=== PATIENT | female | born 2000 | race Caucasian/White ===

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

== ENCOUNTER 2020-01-29 09:44 | Emergency (ER) | payer OTHER, SELFPAY ==
[2020-01-29 09:44] VITALS: BP 120/70; PULSE 83; RESP 16; TEMP 36.8; O2SAT 98; BMI 31.2
--- NOTE | 2020-01-29 10:01 | HMH.EDUTC ---
[facility] [place]: Exposure to COVID-19 virus Disposition: Home, Self-Care Condition on Discharge: Good Instructions: Sore Throat, Preventing the Spread of Coronavirus Discharge Instructions Additional Instructions: *Monitor Temp, Over the counter Motrin or Tylenol as directed/as needed Tylenol every 4 hours and Motrin every 6 hours (as long as your family doctor has told you that you can take it) for fever or pain. and straight to ER if unable to lower temp less than 101.0 after medication given *Warm salt water gargles may help to soothe the throat *Throat Lozenges *Warm fluids like tea with honey may help to soothe the throat *Sleep elevated *Humidifier/Vaporizer Your throat swab was sent for culture. Those results are typically sent to your primary care. Be sure to follow up in 2-3 days with your family doctor/primary care physician if no improvement so they can review those result and treat if necessary. If you don?t have a primary care doctor, I recommend you get one but in the mean time, you will have to return to a walk in clinic Follow up IMMEDIATELY for new or worsening symptoms or no Noticeable improvement over the next 48-72 hours. 911 for difficulty breathing or swallowing You was tested for today for COVID19 your test result should be back in the next 24-48 hours, you may call to the [facility] tomorrow to see if your test results are back however could take up to 48 hours before results are back [phone] [facility] hours are 9am-9pm You was given a handout with instructions for Self Quarantine and Self isolation for while you wait on test results and what to do if they are positive If you are positive the Health Dept will be contacting you also Referrals: Carson Balderas MD [Primary Care Provider] - As needed Forms: Work/School Release Time of Disposition: 10:05 Medical Decision Making - Cordell Inquiry Pt receiving controlled substance: No Cordell was queried for this patient: No Vital Signs: 01/29/20 09:44 01/29/20 10:12 Temperature 98.2 F 98.5 F Temperature Source Oral Oral Pulse Rate 74 Pulse Rate [Right] 83 Respiratory Rate 16 16 Blood Pressure 122/74 Blood Pressure [Right Arm] 120/70 Blood Pressure Mean [Right Arm] 86 Blood Pressure Source Automatic Cuff Blood Pressure Source [Right Arm] Automatic Cuff Blood Pressure Position Sitting Blood Pressure Position [Right Arm] Sitting 02 Sat by Pulse Oximetry 98 Oxygen Delivery Method Room Air Room Air - Lab Data Lab results reviewed: Yes: I reviewed the patient's lab results. Lab Results 01/29/20 10:00: Strep Scn Rapid Clinic Negative Orders (Tests/Meds): ORDERS Category Date Time Status Covid-19 Nasal PCR Sendout Marciano Stat Lab 01/29/20 09:40 Received Strep Screen Confirmation Stat Micro 01/29/20 10:00 Received [facility] [place] HPI - General Stated complaint: Covid exposure Time Seen by Provider: 01/29/20 10:02 Mode of Arrival: Ambulatory Source of Information: Patient Limitations: No Limitations Description of Symptoms (Recalled from Triage Doc. by RN): pt c/o sore throat HEENT Symptoms (Recalled from RN notes): No Resp Symptoms (Recalled from RN notes): No Skin Symptoms (Recalled from RN notes): No MS Symptoms (Recalled from RN notes): No Functional Status (Recalled from RN notes): na - History of Present Illness Provider Complaint: Patient state that she has been having sore throat and headache State that she was recently around several people that has tested positive for COVID and also strep so she come in to get checked - Related Data Home Medications Medication Instructions Recorded Confirmed norethindrone-e.estradioL-iron [Lo 1 tab PO DAILY 10/27/19 10/27/19 Loestrin Fe 1-10 Tablet] Allergies Allergy/AdvReac Type Severity Reaction Status Date / Time No Known Allergies Allergy Verified 10/27/19 18:53 - Worker's Comp Is this a Worker's Comp case?: No [facility] History - H
[2020-01-29 10:08] LABS: UTC Strep Screen (Rapid) Negative (Negative)
[2020-01-29 10:12] VITALS: BP 122/74; PULSE 74; RESP 16; TEMP 36.9; O2SAT 98
[2020-01-30 13:31] LABS: Covid-19 Nasal PCR Sendout Lex NOT DETECTED
== END 2020-01-29 10:13 | disposition home or self-care (01) ==
PROVIDERS: Emergency Provider Nurse Practitioner; PCP Specialist
DX: Z20.828 Contact with and (suspected) exposure to other viral communicable diseases (principal)
CPT/HCPCS: 87880; 99201; U0004

== ENCOUNTER 2021-06-14 19:02 | Emergency (ER) | payer BC, SELFPAY ==
[2021-06-14 20:23] VITALS: BP 121/73; PULSE 69; RESP 18; TEMP 36.9; O2SAT 100; BMI 24.9
--- NOTE | 2021-06-14 20:40 | HMH.EDUTC ---
[facility] [place] Disposition Clinical Impression: Post concussion syndrome Disposition: Home, Self-Care Condition on Discharge: Good Instructions: Postconcussion Syndrome, DI for Postconcussion Syndrome Additional Instructions: If you notice any of the following, please return and go to the ER. 1. Vomits twice. 2. Develop a severe or worsening headache 3. Is confused or not acting normally 4. Has a hard time walking, talking, or seeing 5. Develop a stiff neck 6. Have any seizure or any abnormal movements or behaviors that worry you 7. Has weakness or numbness involving any part of the body Follow up with your primary care physician. Rest as much as you can and avoid activities that require concentration or a lot of eye movement for the next 2 weeks or so. Prescriptions: Ondansetron [Zofran 4mg ODT] 4 mg PO Q8HP PRN #20 tab PRN Reason: Nausea Transmission Status: Received by [id number] Referrals: Provider,Referral, [Primary Care Provider] - Forms: Work/School Release Time of Disposition: 20:48 Medical Decision Making - Medical Records Medical records reviewed: No: I reviewed the patient's medical records. - Cordell Inquiry Pt receiving controlled substance: No Vital Signs: 06/14/21 20:23 06/14/21 20:57 Temperature 98.4 F 98.4 F Temperature Source Oral Oral Pulse Rate 69 Pulse Rate [Left Radial] 69 Respiratory Rate 18 18 Blood Pressure 121/73 Blood Pressure [Right Arm] 121/73 Blood Pressure Mean [Right Arm] 89 02 Sat by Pulse Oximetry 100 Orders (Tests/Meds): ED MEDICATIONS Discontinued Medications Generic Name Dose Route Start Last Admin Trade Name Freq PRN Reason Stop Dose Admin Ondansetron HCl 4 mg 06/14/21 20:44 06/14/21 20:52 Ondansetron 4mg Odt SL 06/14/21 20:45 4 mg ONCE ONE Administration [facility] [place] HPI - General Stated complaint: nausea Time Seen by Provider: 06/14/21 20:40 Mode of Arrival: Ambulatory Source of Information: Patient Description of Symptoms (Recalled from Triage Doc. by RN): nausea that started yesterday. pt states she is on control but she does not have normal periods HEENT Symptoms (Recalled from RN notes): No Resp Symptoms (Recalled from RN notes): No Skin Symptoms (Recalled from RN notes): No MS Symptoms (Recalled from RN notes): No Functional Status (Recalled from RN notes): wnl - History of Present Illness Provider Complaint: She is here requesting a work note. She bumped her head on the bottom of her t.v. 2 days ago. She states that since then she has had periods of nausea and she has felt tired a lot. She denies any headache - Related Data Home Medications Medication Instructions Recorded Confirmed norethindrone-e.estradioL-iron [Lo 1 tab PO DAILY 10/27/19 10/27/19 Loestrin Fe 1-10 Tablet] Previous Rx's Medication Instructions Recorded Ondansetron [Zofran 4mg ODT] 4 mg PO Q8HP PRN #20 tab 06/14/21 Allergies Allergy/AdvReac Type Severity Reaction Status Date / Time No Known Allergies Allergy Verified 10/27/19 18:53 - Worker's Comp Is this a Worker's Comp case?: No Is this an H Worker's Comp?: No Is this a [place] Worker's Comp?: No [facility] History - Hepatitis A Screen Drug use history?: No High risk sexual behaviors?: No History of sexually transmitted infection?: No Currently employed?: No Childcare worker?: No Do you have indoor plumbing?: Yes Do you have electricity?: Yes Attestation statement:: This patient has been screened for Hepatitis A risk factors. I have reviewed the patient's past medical history: Yes Medical History: Denies:: Diabetes Mellitus Type 1, Diabetes Mellitus Type 2, MRSA Amputation: No Fractures: No - Social History Smoking Status: Never smoker Alcohol Intake: never Occupational Status: other Housing: house Household Members: family ROS Obtained: Yes All systems reviewed & no additional complaints - Constitutional Con
[2021-06-14 20:57] VITALS: BP 121/73; PULSE 69; RESP 18; TEMP 36.9
== END 2021-06-14 20:59 | disposition home or self-care (01) ==
PROVIDERS: Emergency Provider Nurse Practitioner Family
DX: S00.03XA Contusion of scalp, initial encounter (principal); W22.8XXA Striking against or struck by other objects, initial encounter
CPT/HCPCS: 99212; G0463